=== PATIENT | female | born 1985 | race American Indian/Alaskan Native ===

== ENCOUNTER 2016-12-16 14:03 | Emergency (ER) | payer MEDICAID, OTHER ==
--- NOTE | 2016-12-16 17:30 | Emergency Department Report ---
ED Extremity Problem HPI - General Chief complaint: Extremity Injury, Lower Stated complaint: LEFT THIGH PAIN Time Seen by Provider: 12/16/16 17:27 Source: patient Mode of arrival: Ambulatory Limitations: No Limitations - History of Present Illness Initial comments: 31-year-old female past medical history none presents with complaint of left thigh pain. Patient states that she has been sitting on the floor in her living room working on a project for the last several days and has been leaning on her left buttock. Patient complaining of pain in her left buttock and left lateral thigh. Denies any direct trauma denies any falls no rash. Pain begins in her left buttock and radiates to the top of left thigh. No fevers no chills reported. No changes in skin coloration on thigh or buttock. No saddle paresthesias no bladder or bowel incontinence. Patient is visibly ambulatory without assistance MD Complaint: extremity pain Onset/Timin -: days(s) Location: left, lower extremity (left lateral thigh) History of Same: No Radiation: none Severity scale (0 -10): 5 Quality: aching Consistency: intermittent Improves with: immobilization Worsens with: palpation Associated Symptoms: denies other symptoms - Related Data Previous Rx's Medication Instructions Recorded Last Taken Type Cyclobenzaprine [Flexeril] 10 mg PO TID PRN #12 tablet 12/16/16 Unknown Rx Naproxen [Naprosyn TAB] 375 mg PO BID PRN #30 tablet 12/16/16 Unknown Rx Allergies Allergy/AdvReac Type Severity Reaction Status Date / Time No Known Allergies Allergy Unverified 12/16/16 14:07 ED Review of Systems ROS: Stated complaint: LEFT THIGH PAIN Other details as noted in HPI Constitutional: denies: chills, fever Eyes: denies: eye pain, eye discharge, vision change ENT: denies: ear pain, throat pain Respiratory: denies: cough, shortness of breath, wheezing Cardiovascular: denies: chest pain, palpitations Endocrine: no symptoms reported Gastrointestinal: denies: abdominal pain, nausea, diarrhea Genitourinary: denies: urgency, dysuria, discharge Musculoskeletal: denies: back pain, joint swelling, arthralgia Skin: denies: rash, lesions Neurological: denies: headache, weakness, paresthesias Psychiatric: denies: anxiety, depression Hematological/Lymphatic: denies: easy bleeding, easy bruising ED Past Medical Hx - Past Medical History Previous Medical History?: No - Surgical History Past Surgical History?: No - Medications Home Medications: Home Medications Medication Instructions Recorded Confirmed Last Taken Type Cyclobenzaprine [Flexeril] 10 mg PO TID PRN #12 tablet 12/16/16 Unknown Rx Naproxen [Naprosyn TAB] 375 mg PO BID PRN #30 tablet 12/16/16 Unknown Rx ED Physical Exam - General Limitations: No Limitations General appearance: alert, in no apparent distress - Head Head exam: Present: atraumatic, normocephalic - Eye Eye exam: Present: normal appearance, PERRL, EOMI - ENT ENT exam: Present: mucous membranes moist - Neck Neck exam: Present: normal inspection, full ROM - Respiratory Respiratory exam: Present: normal lung sounds bilaterally. Absent: respiratory distress - Cardiovascular Cardiovascular Exam: Present: regular rate, normal rhythm. Absent: systolic murmur, diastolic murmur, rubs, gallop - GI/Abdominal GI/Abdominal exam: Present: soft, normal bowel sounds - Extremities Exam Extremities exam: Present: normal inspection - Expanded Lower Extremity Exam Left Hip exam: Present: full ROM (hip ), tenderness (some tenderness on plaption left upper thigh), external rotation, internal rotation Knee exam: Present: normal inspection, full ROM Lower Leg exam: Present: normal inspection, full ROM Ankle exam: Present: normal inspection, full ROM Foot/Toe exam: Present: normal inspection, full ROM Neuro vascular tendon exam: Present: no vascular compromise (popliteal, distal dorsalis pedis and posterior tibial pulses intact) Gait: Positive: antalgic 1 - pain on palpation here - Back Exam Back exam: Present: normal inspection - Neurological Exam Neurological exam: Present: alert, oriented X3, CN II-XII intact, normal gait - Psychiatric Psychiatric exam: Present: normal affect, normal mood - Skin Skin exam: Present: warm, dry, intact, normal color. Absent: rash ED Course Vital Signs 12/16/16 12/16/16 12/16/16 14:05 18:50 18:52 Temperature 98.1 F Pulse Rate 85 Respiratory 16 16 16 Rate Blood Pressure 120/58 O2 Sat by Pulse 100 Oximetry ED Medical Decision Making - Lab Data Result diagrams: 12/16/16 17:46 12/16/16 17:46 - Medical Decision Making A/P: Musculoskeletal pain left thigh, left buttock piriformis syndrome 1-labs unremarkable, creatinine kinase within normal limits. Left leg neurovascularly intact, thigh is soft to palpation. No pulses is no pallor no hyperesthesia on exam. I advised patient to return to the ED if she notices that her left leg becomes stiff cuff to palpation read she develops pallor or paresthesias in the left leg she does not currently have. 2-naproxen when necessary, Flexeril when necessary 3-pt is independently ambulatory, reflexes and left lower extremity normal, range of motion left hip internal and external rotation abduction and abduction flexion and extension intact. Strength 5 out of 5 left lower extremity 4- follow-up with primary care doctor Critical care attestation.: If time is entered above; I have spent that time in minutes in the direct care of this critically ill patient, excluding procedure time. ED Disposition Clinical Impression: Pain in left thigh, Musculoskeletal pain of left thigh Disposition: DC- TO HOME OR SELFCARE Is pt being admited?: No Does the pt Need Aspirin: No Condition: Stable Instructions: Musculoskeletal Pain (ED), Piriformis Syndrome (ED) Prescriptions: Cyclobenzaprine [Flexeril] 10 mg PO TID PRN #12 tablet PRN Reason: Muscle Spasm Naproxen [Naprosyn TAB] 375 mg PO BID PRN #30 tablet PRN Reason: Pain Referrals: DAPHNEY RUCKER MD [Staff Physician] - 3-5 Days [facility] [Provider Group] - 3-5 Days Forms: Work/School Release Form(ED) Time of Disposition: 18:58
[2016-12-16 17:57] LABS: Basophils % (Auto) 0.3 % (0.0-1.8); Eosinophils % (Auto) 0.7 % (0.0-4.3); Hematocrit 38.6 % (30.3-42.9); Hemoglobin 12.6 gm/dl (10.1-14.3); Mean Corpuscular HGB Conc 33 % (30-34); Mean Corpuscular Hemoglobin 29 pg (28-32); Mean Corpuscular Volume 88 fl (79-97); Platelet Count 277 K/mm3 (140-440); Red Cell Distribution Width 13.4 % (13.2-15.2); White Blood Count 11.8 K/mm3 (4.5-11.0)
[2016-12-16 18:18] LABS: Alanine Aminotransferase 7 units/L (7-56); Albumin 4.3 g/dL (3.9-5); Albumin/Globulin Ratio 1.2 %; Alkaline Phosphatase 39 units/L (35-129); Anion Gap 17 mmol/L; Blood Urea Nitrogen 8 mg/dL (7-17); Calcium 9.8 mg/dL (8.4-10.2); Carbon Dioxide 25 mmol/L (22-30); Chloride 101.9 mmol/L (98-107); Creatine Kinase 54 units/L (30-135); Glucose 87 mg/dL (65-100); Potassium 4.3 mmol/L (3.6-5.0); Sodium 140 mmol/L (137-145)
[2016-12-16 18:20] LABS: Bilirubin,Direct < 0.2 mg/dL (0-0.2); Bilirubin,Indirect 0.1 mg/dL
[2016-12-16] MEDS ORDERED: MOTRIN PO ONE (18:25)
[2016-12-16] MEDS ORDERED: NORCO 5/325 PO ONE (18:25)
[2016-12-16] MEDS ORDERED: ZOFRAN ODT PO ONE (18:25)
[2016-12-16 18:40] LABS: Bilirubin,Urine NEG (Negative); Blood,Urine NEG (Negative); Ketones,Urine NEG (Negative); Leukocyte Esterase,Urine NEG (Negative); Mucus,Urine FEW /HPF; Nitrite,Urine NEG (Negative); Protein,Urine <15 mg/dL mg/dL (Negative); Urobilinogen,Urine < 2.0 mg/dL (<2.0)
[2016-12-17 00:23] VITALS: BP 126/71
== END 2016-12-16 19:30 | disposition home or self-care (01) ==
LOC: ED 14:03
DX: M79.652 Pain in left thigh (principal)
CPT/HCPCS: 36415; 80048; 80074; 81001; 81025; 82550; 85025; Q0162

== ENCOUNTER 2019-06-01 18:03 | Emergency (ER) | payer MEDICAID, OTHER ==
--- NOTE | 2019-06-01 20:14 | Emergency Department Report ---
ED ENT HPI - General Chief complaint: Dental/Oral Stated complaint: TOOTHACHE Time Seen by Provider: 06/01/19 20:11 Source: patient Mode of arrival: Ambulatory Limitations: No Limitations - History of Present Illness Initial comments: 34 yo AA F pt presents with complaints of right lower dental pain x weeks, no with worsening pain and facial swelling x this morning. States she plans to make a dental appointment tomorrow. Denies fever, rooling, and trouble opening her jaw. Rates her pain at 10/10 in severity. MD complaint: tooth pain - Related Data Previous Rx's Medication Instructions Recorded Last Taken Type Cyclobenzaprine [Flexeril] 10 mg PO TID PRN #12 tablet 12/16/16 Unknown Rx Naproxen [Naprosyn TAB] 375 mg PO BID PRN #30 tablet 12/16/16 Unknown Rx Acetaminophen/Codeine [Tylenol 1 tab PO Q6H PRN #10 tab 06/01/19 Unknown Rx /Codeine # 3 tab] Clindamycin [Clindamycin CAP] 300 mg PO Q6H 10 Days #40 capsule 06/01/19 Unknown Rx Allergies Allergy/AdvReac Type Severity Reaction Status Date / Time No Known Allergies Allergy Unverified 12/16/16 14:07 ED Dental HPI - General Chief complaint: Dental/Oral Stated complaint: TOOTHACHE Time Seen by Provider: 06/01/19 20:11 Source: patient Mode of arrival: Ambulatory Limitations: No Limitations - Related Data Previous Rx's Medication Instructions Recorded Last Taken Type Cyclobenzaprine [Flexeril] 10 mg PO TID PRN #12 tablet 12/16/16 Unknown Rx Naproxen [Naprosyn TAB] 375 mg PO BID PRN #30 tablet 12/16/16 Unknown Rx Acetaminophen/Codeine [Tylenol 1 tab PO Q6H PRN #10 tab 06/01/19 Unknown Rx /Codeine # 3 tab] Clindamycin [Clindamycin CAP] 300 mg PO Q6H 10 Days #40 capsule 06/01/19 Unknown Rx Allergies Allergy/AdvReac Type Severity Reaction Status Date / Time No Known Allergies Allergy Unverified 12/16/16 14:07 ED Review of Systems ROS: Stated complaint: TOOTHACHE Other details as noted in HPI Constitutional: denies: chills, fever ENT: dental pain. denies: throat pain Skin: denies: rash, lesions, change in color Neurological: denies: headache Hematological/Lymphatic: denies: swollen glands ED Past Medical Hx - Past Medical History Previous Medical History?: No - Surgical History Past Surgical History?: No - Social History Smoking Status: Never Smoker Substance Use Type: None - Medications Home Medications: Home Medications Medication Instructions Recorded Confirmed Last Taken Type Cyclobenzaprine [Flexeril] 10 mg PO TID PRN #12 tablet 12/16/16 Unknown Rx Naproxen [Naprosyn TAB] 375 mg PO BID PRN #30 tablet 12/16/16 Unknown Rx Acetaminophen/Codeine [Tylenol 1 tab PO Q6H PRN #10 tab 06/01/19 Unknown Rx /Codeine # 3 tab] Clindamycin [Clindamycin CAP] 300 mg PO Q6H 10 Days #40 capsule 06/01/19 Unknown Rx ED Physical Exam - General Limitations: No Limitations General appearance: alert, in no apparent distress - Head Head exam: Present: atraumatic, normocephalic - Eye Eye exam: Present: normal appearance - Expanded ENT Exam Expanded Mouth exam: Absent: drooling, trismus, muffled voice Teeth exam: Present: other (right lower dental abscess noted wild mild facial swelling. No overlying erythema of face noted. ). Absent: dental caries Throat exam: Negative: tonsillar erythema, tonsillomegaly - Neck Neck exam: Present: normal inspection, full ROM. Absent: lymphadenopathy - Respiratory Respiratory exam: Absent: respiratory distress - Cardiovascular Cardiovascular Exam: Present: regular rate - Neurological Exam Neurological exam: Present: alert, oriented X3 - Psychiatric Psychiatric exam: Present: normal affect, normal mood - Skin Skin exam: Present: warm, dry, intact, normal color. Absent: rash, erythema ED Course Vital Signs 06/01/19 20:10 Temperature 98.8 F Pulse Rate 74 Respiratory 18 Rate Blood Pressure 115/61 O2 Sat by Pulse 98 Oximetry - I & D Face Type of Procedure: Simple Blade Size: 11 Progress: cleaned with alcohol. abscess poked with 20 gauge needle. Mild purulent drainage noted from opening. pt tolerated procedure well. minimal bleeding occured ED Medical Decision Making - Medical Decision Making Pt here with dental right lower dental abscess x today. Abscess drained. pt given dose of clindamycin and decadron for swelling and infection. Pt's vitals are normal. She is well appearing and stable for discharge home. Rx for clindamycin given. Pt to follow up with her dentist tomorrow. Discussed strict return precautions in detail with pt who states understanding. Critical care attestation.: If time is entered above; I have spent that time in minutes in the direct care of this critically ill patient, excluding procedure time. ED Disposition Clinical Impression: Dental abscess Disposition: TO HOME OR SELFCARE Is pt being admited?: No Condition: Stable Instructions: Dental Abscess (ED) Prescriptions: Clindamycin [Clindamycin CAP] 300 mg PO Q6H 10 Days #40 capsule Acetaminophen/Codeine [Tylenol /Codeine # 3 tab] 1 tab PO Q6H PRN #10 tab PRN Reason: pain Referrals: PRIMARY CARE, [Primary Care Provider] - 3-5 Days
[2019-06-01] MEDS ORDERED: DEXAMETHASONE 4 MG TAB PO ONE (20:33)
[2019-06-01] MEDS ORDERED: CLINDAMYCIN 300 MG CAP PO ONE (20:33)
[2019-06-01 21:22] VITALS: BP 108/71
== END 2019-06-01 21:35 | disposition home or self-care (01) ==
LOC: ED 18:03
DX: K04.7 Periapical abscess without sinus (principal); Z79.899 Other long term (current) drug therapy
CPT/HCPCS: 41800; 99282; J8540